=== PATIENT | female | born 1940 | race Caucasian/White ===

== ENCOUNTER 2018-01-26 17:30 | Emergency (ER) | payer MEDICARE ==
[2018-01-26 18:27] LABS: Bilirubin Negative (Negative); Blood, Urine Trace (Negative); Clarity Clear (Clear); Glucose, Urine (Dipstick) Negative (Negative); Leukocyte Negative (Negative); Nitrite Negative (Negative); Protein, Urine (Dipstick) Negative (Neg-Trace); Specific Gravity, Urine 1.015 (1.005-1.030); Urobilinogen 0.2 mg/dL (0.2-1.0); pH, Urine 7.5 (5.0-9.0)
[2018-01-26 18:33] LABS: RBC/HPF 0-3 HPF (0-3); WBC/HPF None Seen HPF (0-3)
[2018-01-26 18:34] LABS: Bacteria/HPF Rare-Few HPF (None Seen)
[2018-01-26] MEDS ORDERED: Morphine 4 MG/ML Carpuject ONE (19:01)
[2018-01-26] MEDS ORDERED: Ondansetron HCl/PF 4 MG/2 ML Vial ONE (19:01)
[2018-01-26 19:20] LABS: Band 3 % (5-11); Hemoglobin 14.4 g/dL (12.0-16.0); Lymphocytes 10 % (21-51); MDiff Complete? YES; Mean Corpuscular HGB CONC 35.8 g/dL (32.0-36.0); Mean Corpuscular Hemoglobin 31.5 pg (27.0-31.0); Mean Platelet Volume 10.3 fL (7.4-10.4); Monocytes 9 % (0-10); Neutrophil 77 % (42-75); PLT Morphology Comment Appears Adequate; Platelet Count 149 thou/uL (130-400); RBC Distribution Width 11.4 % (11.5-14.5); RBC Morphology Normal; Red Blood Cell (RBC) Count 4.58 mill/uL (4.20-5.40); White Blood Cell (WBC) Count 10.4 thou/uL (4.8-10.8)
[2018-01-26 20:19] LABS: ALT (SGPT) 15 U/L (8-55); AST (SGOT) 18 U/L (5-34); Albumin 4.3 g/dL (3.4-4.8); Alkaline Phosphatase 76 U/L (40-150); Anion Gap 14 mmol/L (10-20); BUN (Urea Nitrogen) 15 mg/dL (9.8-20.1); Bilirubin, Total 0.6 mg/dL (0.2-1.2); Calc. Creatinine Clearance 0 mL/min (70-130); Calcium 9.5 mg/dL (7.8-10.44); Carbon Dioxide 25 mmol/L (23-31); Chloride 103 mmol/L (98-107); Estimated GFR-MDRD 70; Glucose 105 mg/dL (83-110); Lipase 23 U/L (8-78); Potassium 3.9 mmol/L (3.5-5.1); Protein, Total 7.3 g/dL (6.0-8.3); Sodium 138 mmol/L (136-145)
--- NOTE | 2018-01-26 21:13 | CT ---
CT OF THE ABDOMEN AND PELVIS WITH IV CONTRAST: 01/26/18 INDICATION: Abdominal pain beginning yesterday. First started as intermittent and has lasted for the last two akil rs. History of diverticulosis and diverticulitis. FINDINGS: There is mild subsegmental volume loss within both lung bases. There is a prominent 3.8 cm cyst within the left hepatic lobe. Two additional subcentimeter cysts are seen within the left hepatic lobe. Pancreas and adrenal glands are unremarkable. The spleen and kidneys appear within normal limits. There is some wall thickening involving the distal sigmoid colon and upper rectum. A small amount of fluid seen within the right hemipelvis. The uterus, bladder, and remaining visualized small and large bowel appear within normal limits. Punctate regions of radiodensity within the lower pelvis is nonsp ecific and may reflect retained barium within diverticula. POS: [email or web address]
== END 2018-01-26 21:35 | disposition home or self-care (01) ==
LOC: SCSER 17:30
DX: K52.9 Noninfective gastroenteritis and colitis, unspecified (principal); E03.9 Hypothyroidism, unspecified; Z79.899 Other long term (current) drug therapy
CPT/HCPCS: 74177; 80053; 81003; 81015; 83605; 83690; 85025; 96361; 96374; 96375; J2270; J2405

== ENCOUNTER 2018-06-24 19:55 | Emergency (ER) | payer MEDICARE ==
--- NOTE | 2018-06-24 21:39 | RAD ---
CHEST ONE VIEW: 06/24/18 HISTORY: Chest pain. COMPARISON: None. FINDINGS: Lungs are clear. No pneumothorax or effusion. The cardiac silhouette and mediastinal contours are wit hin normal limits. IMPRESSION: No acute intrathoracic abnormality. POS: HOME
[2018-06-24 22:02] LABS: Hemoglobin 14.5 g/dL (12.0-16.0); Mean Corpuscular HGB CONC 34.6 g/dL (32.0-36.0); Mean Corpuscular Hemoglobin 32.8 pg (27.0-31.0); RBC Distribution Width 11.9 % (11.5-14.5); Red Blood Cell (RBC) Count 4.42 mill/uL (4.20-5.40); White Blood Cell (WBC) Count 3.7 thou/uL (4.8-10.8)
[2018-06-24 22:14] LABS: Band 3 % (5-11); Eosinophils 1 % (0-10); Lymphocytes 21 % (21-51); MDiff Complete? YES; Mean Platelet Volume 8.2 fL (7.4-10.4); Monocytes 9 % (0-10); Neutrophil 63 % (42-75); PLT Morphology Comment Appears Decreased; Platelet Count 116 thou/uL (130-400); RBC Morphology Normal; Reactive Lymphocytes 2 % (0-10)
[2018-06-24 22:16] LABS: ALT (SGPT) 21 U/L (8-55); AST (SGOT) 25 U/L (5-34); Alkaline Phosphatase 53 U/L (40-150); Anion Gap 15 mmol/L (10-20); BUN (Urea Nitrogen) 14 mg/dL (9.8-20.1); Bilirubin, Total 0.4 mg/dL (0.2-1.2); CK (CPK) 101 U/L (29-168); Calc. Creatinine Clearance 0 mL/min (70-130); Calcium 9.3 mg/dL (7.8-10.44); Carbon Dioxide 27 mmol/L (23-31); Chloride 101 mmol/L (98-107); Estimated GFR-MDRD 71; Glucose 95 mg/dL (83-110); Lipase 16 U/L (8-78); Potassium 3.5 mmol/L (3.5-5.1); Sodium 139 mmol/L (136-145)
== END 2018-06-24 23:10 | disposition home or self-care (01) ==
LOC: ERS 19:55
DX: R07.89 Other chest pain (principal); J06.9 Acute upper respiratory infection, unspecified; E03.9 Hypothyroidism, unspecified
CPT/HCPCS: 36415; 71045; 80053; 82550; 83690; 83880; 84484; 85025; 93005

== ENCOUNTER 2024-06-10 14:28 | Emergency (ER) | payer MEDICARE, OTHER ==
[2024-06-10] MEDS ORDERED: methylPREDNISolone Sod Succ/PF 125 MG/2 ML VIAL ONE (14:42)
[2024-06-10 15:08] LABS: #Basophils 0.06 10x3/uL (0.0-0.2); %Basophils 0.8 % (0.0-1.0); %Eosinophils 2.2 % (0.0-10.0); %Lymphocytes 16.2 % (21.0-51.0); %Monocytes 7.6 % (0.0-10.0); %Neutrophils 72.9 % (42.0-75.0); Hematocrit 38.3 % (36.0-47.0); Hemoglobin 13.7 g/dL (12.0-16.0); Mean Corpuscular HGB CONC 35.8 g/dL (32.0-36.0); Mean Corpuscular Hemoglobin 33.2 pg (27.0-31.0); Mean Corpuscular Volume 92.7 fL (78.0-98.0); Mean Platelet Volume 9.6 fL (7.4-10.4); Platelet Count 143 10x3/uL (130-400); RBC Distribution Width 13.1 % (11.5-14.5); Red Blood Cell (RBC) Count 4.13 mill/uL (4.20-5.40)
[2024-06-10] MEDS ORDERED: Ondansetron PF 4 MG/2 ML Vial ONE (15:20)
[2024-06-10 15:25] LABS: ALT (SGPT) 18 U/L (8-55); AST (SGOT) 22 U/L (5-34); Albumin 3.9 g/dL (3.4-4.8); Alkaline Phosphatase 56 U/L (40-110); Anion Gap 18 mmol/L (10-20); BUN (Urea Nitrogen) 11 mg/dL (9.8-20.1); Bilirubin, Total 0.7 mg/dL (0.2-1.2); Calc. Creatinine Clearance 0 mL/min (70-130); Calcium 9.1 mg/dL (7.8-10.44); Carbon Dioxide 20 mmol/L (23-31); Chloride 97 mmol/L (98-107); Estimated GFR 87; Globulin 2.7 g/dL (2.4-3.5); Glucose 104 mg/dL (83-110); Potassium 3.1 mmol/L (3.5-5.1); Protein, Total 6.6 g/dL (5.8-8.1); Sodium 132 mmol/L (136-145)
[2024-06-10 15:27] LABS: PTT 29.3 sec (22.9-36.1)
[2024-06-10 15:31] LABS: Troponin I Less than 0.010 ng/mL (< 0.028)
[2024-06-10 17:10] LABS: Bacteria/HPF None Seen HPF (None Seen); Bilirubin Negative (Negative); Blood, Urine Negative (Negative); CAUTI Indications for Culture Alt mental st,lethar; Clarity Clear (Clear); Glucose, Urine (Dipstick) Normal (Negative); Ketone, Urine 10 mg/dL (Negative); Leukocyte Negative Leu/uL (Negative); Nitrite Negative (Negative); Protein, Urine (Dipstick) Negative (Neg-Trace); RBC/HPF 0-3 HPF (0-3); Specific Gravity, Urine 1.012 (1.002-1.036); Squamous Epithelial None Seen HPF (0-3); Urobilinogen Normal mg/dL (Less than 2); WBC/HPF 0-3 HPF (0-3); pH, Urine 8.5 (5.0-9.0)
[2024-06-10 17:11] LABS: Urine Culture Reflex No No
[2024-06-10] MEDS ORDERED: hydrOXYzine 25 MG TAB ONE (17:19)
[2024-06-10] MEDS ORDERED: Acetaminophen 500 MG TAB ONE (17:19)
== END 2024-06-10 17:35 | disposition home or self-care (01) ==
LOC: ERS 14:28
DX: S06.0X0A Concussion without loss of consciousness, initial encounter (principal); S01.01XA Laceration without foreign body of scalp, initial encounter; R23.8 Other skin changes; I10 Essential (primary) hypertension; R54 Age-related physical debility; Z79.899 Other long term (current) drug therapy; W01.0XXA Fall on same level from slipping, tripping and stumbling without subsequent striking against object, initial encounter
CPT/HCPCS: 70450; 71045; 72125; 72170; 73070; 80053; 81001; 84484; 85025; 85610; 85730; 93005; J2405; J2919; 36415; 96374